=== PATIENT | male | born 1990 | race Native Hawaiian/Other Pacific Islander ===

== ENCOUNTER 2019-07-16 19:39 | Emergency (ER) | payer SELFPAY ==
[~2019-07-16] VITALS: Ht 167.6 cm; Wt 63.6 kg
[2019-07-16 19:44] VITALS: BP 118/77; TEMP 97.8
[2019-07-16 20:29] LABS: COLLECTION METHOD CLEAN CATCH
[2019-07-16 20:34] LABS: BASO # 0.1 (0.0-0.2); BASO % 0.8 % (0.0-2.0); EOS # 0.4 (0.0-0.7); EOS % 5.1 % (0-4.0); GRAN # 4.4 (1.4-6.5); GRAN % 60.6 % (42.2-75.2); HEMATOCRIT 53.5 % (42.0-52.0); HEMOGLOBIN 17.5 g/dl (13.5-18.0); LYMPH # 1.8 (1.2-3.4); LYMPH % 25.6 % (20.0-51.0); MEAN CELL VOLUME 92 fl (80.0-100.0); MEAN CORPUSCULAR HEMOGLOBIN 30 pg (27.0-31.0); MEAN CORPUSCULAR HGB CONC 33 g/dl (33.0-37.0); MEAN PLATELET VOLUME 8.8 fl (7.4-10.4); MONO # 0.5 (0.1-0.6); MONO % 7.5 % (1.7-9.3); PLATELET COUNT 285 K/mm3 (130-400); RED BLOOD COUNT 5.79 M/mm3 (4.20-5.60)
[2019-07-16 20:40] LABS: PH 7 (5-8); SQUAMOUS EPITHELIAL None Seen /hpf; URINE APPEARANCE Clear; URINE BACTERIA None Seen /hpf; URINE BILIRUBIN Negative (NEGATIVE); URINE BLOOD 1+ (NEGATIVE); URINE COLOR Straw; URINE GLUCOSE Negative (NEGATIVE); URINE KETONE Negative (NEGATIVE); URINE LEUKOCYTE ESTERASE Negative (NEGATIVE); URINE NITRATE Negative (NEGATIVE); URINE PROTEIN(semi-quant) Negative (NEGATIVE); URINE UROBILINOGEN Negative (NEGATIVE)
[2019-07-16 20:47] LABS: CREATININE, serum 0.86 (0.66-1.25); POTASSIUM 4.3 mmol/L (3.4-5.0)
[2019-07-16 21:40] VITALS: PULSE 62
== END 2019-07-16 21:45 | disposition home or self-care (01) ==
LOC: COL.ER 19:39
PROVIDERS: Physician Assistant
DX: M54.5 Low back pain (principal)
CPT/HCPCS: J1885; J2360

== ENCOUNTER 2020-10-28 14:08 | Emergency (ER) | payer SELFPAY ==
[~2020-10-28] VITALS: Ht 165.1 cm; Wt 65.9 kg
[2020-10-28 14:22] VITALS: TEMP 98.3
[2020-10-28] MEDS ORDERED: FLEXERIL 1010 MG/TAB PO (15:24)
[2020-10-28 15:32] VITALS: BP 135/90; PULSE 88
== END 2020-10-28 15:30 | disposition home or self-care (01) ==
LOC: COL.ER 14:08
DX: S39.012A Strain of muscle, fascia and tendon of lower back, initial encounter (principal); Z87.891 Personal history of nicotine dependence; W10.9XXA Fall (on) (from) unspecified stairs and steps, initial encounter
CPT/HCPCS: J1885